=== PATIENT | female | born 1985 | race Two or more races ===

== ENCOUNTER 2019-09-02 15:15 | Observation (INO) | payer OTHER ==
[~2019-09-02] VITALS: Ht 153 cm; Wt 64.0 kg
[2019-09-02] MEDS ORDERED: PREN-217 PO (15:53)
[2019-09-02 15:55] VITALS: BP 106/56
[2019-09-02] MEDS ORDERED: NIFEdipine 10 MG CAPSULE PO ONE (17:00)
[2019-09-02 18:39] LABS: APPEARANCE,URINE CLEAR (CLEAR); BILIRUBIN,URINE NEGATIVE (NEGATIVE); GLUCOSE, URINE (UA) NEGATIVE (NEGATIVE); KETONES,URINE >=80 mg/dL (NEGATIVE); LEUKOCYTE ESTERASE ,URINE NEGATIVE (NEGATIVE); NITRATE,URINE NEGATIVE (NEGATIVE); OCCULT BLOOD,URINE NEGATIVE (NEGATIVE); PROTEIN,URINE NEGATIVE (NEGATIVE); UROBILINOGEN,URINE 0.2 mg/dL (<=1.0)
[2019-09-02 18:50] LABS: BACTERIA,URINE None Seen /HPF (None Seen); RBC,URINE None Seen /HPF (0-2); SQUAMOUS EPITHELIAL CELL,UR Few /LPF (None Seen); WBC,URINE None Seen /HPF (0-5)
[2019-09-03] MEDS: RINGERS SOLUTION,LACTATED 1,000 ML IV SCH ×6 (02:43→23:22)
[2019-09-03] MEDS ORDERED: NIFEdipine 10 MG CAPSULE PO ONE ×2 (06:45→08:30)
[2019-09-03] MEDS ORDERED: RINGERS SOLUTION,LACTATED 1,000 ML IV SCH (09:45)
[2019-09-03] MEDS: BETAMETHASONE SOLUSPAN 6 MG/ML 5 ML VIAL IM SCH (10:10)
[2019-09-04] MEDS ORDERED: RINGERS SOLUTION,LACTATED 1,000 ML IV SCH (07:15)
[2019-09-04] MEDS: BETAMETHASONE SOLUSPAN 6 MG/ML 5 ML VIAL IM SCH (09:21)
== END 2019-09-04 12:50 | disposition home or self-care (01) ==
LOC: OBSVTOIN 15:15 → INTOOBSV 15:15 → 4S 15:15
PROVIDERS: ADMIT Obstetrics & Gynecology; ATTEND Obstetrics & Gynecology
DX: O62.9 Abnormality of forces of labor, unspecified (principal); Z3A.34 34 weeks gestation of pregnancy
CPT/HCPCS: 81001; 96372 ×2; G0378; J0702 ×2; J7120 ×3

== ENCOUNTER 2019-10-07 00:20 | Inpatient (IN) | payer OTHER ==
[~2019-10-07] VITALS: Ht 152.4 cm; Wt 69.4 kg
[~2019-10-07 00:20] MED LIST: PREN-217 PO
[2019-10-07] MEDS ORDERED: RINGERS SOLUTION,LACTATED 1,000 ML IV PRN (01:22)
[2019-10-07] MEDS ORDERED: OXYTOCIN 30 UNITS/LACT RINGERS 500 ML IV ONE (01:22)
[2019-10-07] MEDS ORDERED: METOCLOPRAMIDE HCL 5 MG/ML 2 ML VIAL IVP PRN (01:30)
[2019-10-07] MEDS ORDERED: FentaNYL CITRATE-PF 100 MCG/2 ML VIAL IVP PRN (01:30)
[2019-10-07] MEDS ORDERED: CITRIC ACID/SODIUM CITRATE 30 ML SOLUTION UDCUP PO PRN (01:30)
[2019-10-07 01:57] LABS: BASOPHILS % (AUTO) 0.3 % (0.0-2.0); HEMATOCRIT 36.6 % (36-46); HEMOGLOBIN 12.3 g/dL (12.0-16.0); LYMPHOCYTES # (AUTO) 2.3 K/uL (1.0-4.8); MEAN CORPUSCULAR HEMOGLOBIN 29.3 pg (26.0-34.0); MEAN CORPUSCULAR HGB CONC 33.5 G/dL (31.0-37.0); MEAN CORPUSCULAR VOLUME 87 fL (80-100); MONOCYTES # (AUTO) 0.7 K/uL (0.1-1.0); MONOCYTES % (AUTO) 6.7 % (2.0-9.0); PLATELET COUNT (AUTO)-OB 249 K/uL (150-450); RED BLOOD CELL COUNT(AUTO) 4.19 MIL/uL (4.00-5.20); RED CELL DISTRIBUTION WIDTH 15.1 % (11.5-14.5)
[2019-10-07] MEDS: RINGERS SOLUTION,LACTATED 1,000 ML IV SCH ×5 (02:16→22:34)
[2019-10-07] MEDS ORDERED: LIDOCAINE/PF 2% 5 ML VIAL ONE (02:32)
[2019-10-07] MEDS ORDERED: ROPIVACAINE HCL/PF 0.2% 100 ML ED ONE (02:32)
[2019-10-07 03:10] VITALS: BP 103/57
[2019-10-07] MEDS ORDERED: NALBUPHINE HCL 10 MG/ML VIAL IVP PRN (07:15)
[2019-10-07] MEDS ORDERED: DiphenhydrAMINE HCL 50 MG/ML VIAL IVP PRN (07:15)
[2019-10-07] MEDS ORDERED: ONDANSETRON HCL 4 MG/2 ML VIAL IVP PRN (07:15)
[2019-10-07] MEDS ORDERED: OXYGEN THERAPY IH SCH (08:00)
[2019-10-07] MEDS: ROPIVACAINE HCL/PF 0.2% 100 ML ED PRN ×2 (10:18→17:31)
[2019-10-07] MEDS ORDERED: OXYTOCIN 30 UNITS/LACT RINGERS 500 ML IV PRN (11:18)
[2019-10-07] MEDS ORDERED: AMPICILLIN SODIUM 2 GM/NS 100 ML IV ONE (11:30)
[2019-10-07] MEDS: AMPICILLIN SODIUM 1 GM/NS 50 ML IV SCH ×2 (17:02→20:52)
[2019-10-07] MEDS ORDERED: LIDOCAINE/PF 1% 30 ML VIAL INJ PRN (19:00)
[2019-10-07] MEDS ORDERED: METHYLERGONOVINE MALEATE 0.2 MG/ML VIAL IM PRN (19:00)
[2019-10-07] MEDS ORDERED: CARBOPROST TROMETHAMINE 250 MCG/ML AMP IM PRN (19:00)
[2019-10-07] MEDS ORDERED: ACETAMINOPHEN 650 MG RECTAL SUPPOSITORY PR ONE (23:30)
[2019-10-08] MEDS: ROPIVACAINE HCL/PF 0.2% 100 ML ED PRN (00:17)
[2019-10-08] MEDS: AMPICILLIN SODIUM 1 GM/NS 50 ML IV SCH (00:35)
[2019-10-08] MEDS: RINGERS SOLUTION,LACTATED 1,000 ML IV SCH ×2 (04:40→14:10)
[2019-10-08] MEDS ORDERED: SODIUM CHLORIDE 0.9% 1,000 ML ONE (04:57)
[2019-10-08] MEDS ORDERED: RINGERS SOLUTION,LACTATED 1,000 ML IV ONE (04:57)
[2019-10-08] MEDS ORDERED: LIDOCAINE/PF 2% 5 ML VIAL ONE (04:57)
[2019-10-08] MEDS ORDERED: GUM MASTIC/STORAX/MSAL/ALCOHOL LIQUID 0.67 ML VIAL TP ONE ×2 (05:14→06:06)
[2019-10-08] MEDS ORDERED: FentaNYL CITRATE-PF 100 MCG/2 ML VIAL IVP PRN ×2 (05:45→06:00)
[2019-10-08] MEDS ORDERED: HYDROmorphone 2 MG/ML SYRINGE IVP PRN (05:45)
[2019-10-08] MEDS ORDERED: MEPERIDINE-PF 25 MG/ML VIAL IVP PRN (05:45)
[2019-10-08] MEDS ORDERED: ACETAMINOPHEN 1000 MG/ISO-OSM 100 ML IV ONE (05:55)
[2019-10-08] MEDS ORDERED: NALBUPHINE HCL 10 MG/ML VIAL IVP PRN ×2 (06:00)
[2019-10-08] MEDS ORDERED: ONDANSETRON HCL 4 MG/2 ML VIAL IVP PRN (06:00)
[2019-10-08] MEDS ORDERED: MORPHINE SULFATE 10 MG/ML SYRINGE IVP PRN (06:00)
[2019-10-08] MEDS ORDERED: NALOXONE HCL 0.4 MG/ML VIAL IVP PRN (06:00)
[2019-10-08] MEDS ORDERED: DiphenhydrAMINE HCL 50 MG/ML VIAL IVP PRN (06:00)
[2019-10-08] MEDS ORDERED: OXYTOCIN 20 UNITS/LACT RINGERS 1,000 ML IV ONE (07:01)
[2019-10-08] MEDS ORDERED: OXYGEN THERAPY IH SCH ×3 (08:00)
[2019-10-08] MEDS ORDERED: ONDANSETRON HCL 4 MG/2 ML VIAL IVP ONE (12:00)
[2019-10-08] MEDS ORDERED: LIDOCAINE/PF 2% 5 ML VIAL INJ ONE (12:00)
[2019-10-08] MEDS ORDERED: KETOROLAC TROMETHAMINE 60 MG/2 ML VIAL IM ONE (12:00)
[2019-10-08] MEDS ORDERED: FentaNYL CITRATE-PF 100 MCG/2 ML VIAL IVP ONE (12:00)
[2019-10-08] MEDS ORDERED: MORPHINE SULFATE/PF 0.5 MG/ML 10 ML AMP IVP ONE (12:00)
[2019-10-08] MEDS: KETOROLAC TROMETHAMINE 30 MG/ML VIAL IVP SCH ×2 (13:39→18:22)
[2019-10-08] MEDS: ACETAMINOPHEN 1000 MG/ISO-OSM 100 ML IV SCH ×2 (14:09→21:39)
[2019-10-08] MEDS ORDERED: RINGERS SOLUTION,LACTATED 1,000 ML IV SCH (19:17)
[2019-10-08] MEDS ORDERED: MAGNESIUM HYDROXIDE SUSPENSION 30 ML UDCUP PO PRN (19:30)
[2019-10-08] MEDS ORDERED: MEASLES/MUMPS/RUBELLA VACCINE, LIVE 0.5 ML/VIAL SQ ONE (19:30)
[2019-10-08] MEDS ORDERED: LANOLIN 7 GM OINTMENT TP PRN (19:30)
[2019-10-09] MEDS: ACETAMINOPHEN/CODEINE 300-30 MG TABLET PO PRN (05:59)
[2019-10-09] MEDS: MAGNESIUM HYDROXIDE SUSPENSION 30 ML UDCUP PO PRN ×2 (09:42→21:12)
[2019-10-09] MEDS: IBUPROFEN 800 MG TABLET PO PRN ×2 (09:43→17:20)
[2019-10-09 12:17] LABS: BASOPHILS % (AUTO) 0.3 % (0.0-2.0); EOSINOPHILS % (AUTO) 0.6 % (1.0-6.0); HEMATOCRIT 25.7 % (36-46); HEMOGLOBIN 8.5 g/dL (12.0-16.0); LYMPHOCYTES # (AUTO) 2.3 K/uL (1.0-4.8); LYMPHOCYTES % (AUTO) 13.7 % (22.0-44.0); MEAN CORPUSCULAR HEMOGLOBIN 29.3 pg (26.0-34.0); MEAN CORPUSCULAR HGB CONC 33.2 G/dL (31.0-37.0); MEAN CORPUSCULAR VOLUME 88 fL (80-100); MONOCYTES # (AUTO) 0.8 K/uL (0.1-1.0); MONOCYTES % (AUTO) 4.8 % (2.0-9.0); NEUTROPHILS # (AUTO) 13.5 K/uL (1.8-7.7); NEUTROPHILS % (AUTO) 80.6 % (40.0-70.0); PLATELET COUNT (AUTO)-OB 226 K/uL (150-450); RED BLOOD CELL COUNT(AUTO) 2.91 MIL/uL (4.00-5.20); RED CELL DISTRIBUTION WIDTH 15.6 % (11.5-14.5)
[2019-10-09] MEDS ORDERED: ACETAMINOPHEN/CODEINE 300-30 MG TABLET PO PRN ×2 (19:30)
[2019-10-09] MEDS ORDERED: IBUPROFEN 800 MG TABLET PO PRN (19:30)
[2019-10-10] MEDS: IBUPROFEN 800 MG TABLET PO PRN ×2 (01:17→08:11)
[2019-10-10] MEDS: ACETAMINOPHEN/CODEINE 300-30 MG TABLET PO PRN (09:24)
[2019-10-10] MEDS ORDERED: IBUP-2071 PO (10:01)
[2019-10-10] MEDS ORDERED: PERCT PO (10:08)
== END 2019-10-10 13:05 | disposition home or self-care (01) | DRG 788 ==
LOC: 4S 00:20 → OBSVTOIN 00:20 → 4S 10-09 19:31
PROVIDERS: ADMIT Obstetrics & Gynecology; ATTEND Obstetrics & Gynecology
PROC: 10D00Z1 Extraction of Products of Conception, Low, Open Approach (ICD-10-PCS; principal; 2019-10-08)
PROC: 3E033VJ Introduction of Other Hormone into Peripheral Vein, Percutaneous Approach (ICD-10-PCS; 2019-10-08)
DX: O62.0 Primary inadequate contractions (principal); O33.9 Maternal care for disproportion, unspecified; O62.1 Secondary uterine inertia; Z3A.39 39 weeks gestation of pregnancy; Z37.0 Single live birth
CPT/HCPCS: 86850; 86900; 86901; J0131; J0290; J0690; J1885; J2274; J2405; J2590; J2765; J2795; J3010; J3490; J7030; J7120